=== PATIENT | male | born 1945 | race Caucasian/White ===

== ENCOUNTER 2016-11-17 09:45 | Day surgery (SDC) | payer MEDICARE, OTHER ==
[~2016-11-17] VITALS: Ht 180.3 cm; Wt 106.8 kg
[~2016-11-17 09:45] MED LIST: 0.9% Sodium Chloride 1,000 ML IV SCH; ASPI-973 PO; CLON0.1T PO; DOXA2TAB52 PO; HYG25 PO; LISI10TA2 PO; METO50TA3 PO; Sodium Chloride LOK Flush 10 mL Syringe IV PRN; fentaNYL-PF 50 mCg/mL 2 mL Inj IVPUSH PRN
[2016-11-17 10:14] VITALS: BP 151/86; PULSE 63; RESP 16; O2SAT 93
[2016-11-17 11:02] VITALS: BP 152/79; PULSE 59; RESP 16; O2SAT 90
[2016-11-17 11:14] VITALS: BP 142/71; PULSE 58; RESP 16; O2SAT 95
[2016-11-17 11:17] VITALS: BP 138/72; PULSE 59; RESP 16; O2SAT 93
--- NOTE | 2016-11-17 17:41 | ENDO ---
[address] [address] ENDOSCOPY PROCEDURE PATIENT: FLORI COOPER : 1945 MR#: [id number] ADMIT: 11/17/2016 JOB ID: [id number] PROCEDURE: Colonoscopy. INDICATIONS: This is a patient with a personal history of colon polyps. The patient's ASA classification and Mallampati score are 2. MEDICATIONS: 1. Versed 4 mg. 2. Fentanyl 100 mcg. INSTRUMENT USED: PCF H 180 AL. PREPARATION QUALITY: Poor. PROCEDURE DETAILS: After informed consent was obtained, the patient was brought to the GI suite where she was placed on oxygen via nasal cannula and monitored with continuous pulse oximeter, telemetry, and blood pressure monitoring. A time-out was performed. Then, he was placed in the left lateral decubitus position and medications were administered for sedation. Digital rectal exam with palpation of the prostate was performed which revealed an enlarged, firm prostate without any palpable masses. The colonoscope was then inserted into the rectum and advanced under direct visualization to the cecum which was identified by the presence of the ileocecal valve. I was unable to visualize the appendiceal orifice secondary to poor prep. I did attempt with the copious amounts of irrigation to clear the cecum, however, there was solid debris that clogged the suction channel and after repeated attempts, further attempts to clear the cecum were aborted. At this point, the colonoscope was then withdrawn and the mucosa and lumen were examined. In the rectum, retroflexion was performed. Following retroflexion, remaining air in the rectum was suctioned, and the procedure was completed. FINDINGS: 1. Poor prep throughout the colon. 2. In the transverse colon, there was an approximately 4-5 mm sessile polyp that was removed with a cold snare. IMPRESSION: 1. Poor prep. 2. Transverse colon polyp. RECOMMENDATIONS: Repeat colonoscopy with two day prep. COMPLICATIONS: None. ESTIMATED BLOOD LOSS: Less than 5 mL.
--- NOTE | 2016-11-18 13:47 | PATH ---
SURGICAL PATHOLOGY Attending Physician:Eamon Adair CASE STATUS: Signed Out PATIENT NAME: FLORI COOPER PID: [id number] : 1945 DATE COLLECTED:11/17/2016 16:47 SPECIMEN: Colon, Biopsy CLINICAL HISTORY: 1. TRANSVERSE POLYP X1 FINAL DIAGNOSIS: Transverse Colon, Polyp, Biopsy: Tubular adenoma; negative for high-grade dysplasia. ICD10: K63.5 GROSS DESCRIPTION: The specimen is received in one formalin filled container labeled with the patient's name, sublabeled "transverse polyp x1" and consists of a 0.3 x 0.2 x 0.2 CM portion of tissue which is entirely submitted in one cassette. 11/17/2016 [facility] ICD-9 CODES: CPT CODES: 1: 29292 Electronically Signed Out Ramonita Torres MD [facility], [place] [address] Technical component performed at [facility], [address] [place] [address] Ave[address], [place], [address]
[2016-12-25] MEDS ORDERED: LISI10TA PO (15:26)
== END 2016-11-17 23:59 | disposition home or self-care (01) ==
LOC: END 09:45
PROVIDERS: ATTEND Internal Medicine Gastroenterology
DX: Z12.11 Encounter for screening for malignant neoplasm of colon (principal); Z86.010 Personal history of colon polyps; D12.3 Benign neoplasm of transverse colon; I10 Essential (primary) hypertension; E78.5 Hyperlipidemia, unspecified; E11.9 Type 2 diabetes mellitus without complications; Z79.82 Long term (current) use of aspirin; Z87.891 Personal history of nicotine dependence; Z86.73 Personal history of transient ischemic attack (TIA), and cerebral infarction without residual deficits
CPT/HCPCS: 45385; 88305; G0500; J7030

== ENCOUNTER 2016-12-28 08:23 | Day surgery (SDC) | payer MEDICARE, OTHER ==
[~2016-12-28] VITALS: Ht 180.3 cm; Wt 104.3 kg
[~2016-12-28 08:23] MED LIST changes: -0.9% Sodium Chloride 1,000 ML IV SCH; +LISI10TA PO; -LISI10TA2 PO
[2016-12-28 08:52] VITALS: BP 148/95; PULSE 64; RESP 16; O2SAT 94
[2016-12-28] MEDS: 0.9% Sodium Chloride 1,000 ML IV SCH ×2 (08:59→09:46)
[2016-12-28 09:58] VITALS: BP 144/75; PULSE 59; RESP 15; O2SAT 92
[2016-12-28 10:08] VITALS: BP 128/79; PULSE 59; RESP 16; O2SAT 92
[2016-12-28 10:17] VITALS: BP 140/70; PULSE 61; RESP 16; O2SAT 92
--- NOTE | 2016-12-28 12:00 | ENDO ---
[address] [address] ENDOSCOPY PROCEDURE PATIENT: FLORI COOPER : 1945 MR#: [id number] ADMIT: 12/28/2016 JOB ID: [id number] PROCEDURE: Colonoscopy. INDICATION: History of colon polyps. ASA CLASSIFICATION: 2. MALLAMPATI SCORE: 2. MEDICATIONS: Versed 3 mg, fentanyl 75 mcg. INSTRUMENT USED: PCF-H180-AL. PREPARATION QUALITY: Good. PROCEDURE DETAILS: After informed consent was obtained, the patient was brought into the GI suite, where he was placed on oxygen via nasal cannula and monitored with continuous pulse oximeter, telemetry, and blood pressure monitoring. A time-out was performed. Then, he was placed in a left lateral decubitus position and medications were administered for sedation. Digital rectal exam was performed, which was unremarkable. The colonoscope was then inserted into the rectum and advanced under direct visualization to the cecum, which was identified by the presence of the ileocecal valve and appendiceal orifice. Once the cecum was reached, the colonoscope was withdrawn back to the rectum as the mucosa and lumen were examined. In the rectum, retroflexion was performed. Following retroflexion, remaining air in the rectum was suctioned and the procedure was completed. FINDINGS: 1. In the ascending colon, there was an approximately 4-5 mm sessile polyp, was removed with a cold snare. 2. In the transverse colon was approximately 7 mm sessile polyp that was removed with a hot snare. 3. Scattered diverticula were seen throughout the ascending and descending colon. IMPRESSION: 1. Ascending colon polyp. 2. Transverse polyp. 3. Scattered diverticula in the ascending and descending colon. RECOMMENDATIONS: 1. Avoid NSAIDs and anticoagulants for 72 hours. 2. Repeat colonoscopy in three years. 3. Follow up in GI clinic as needed. COMPLICATIONS: None. ESTIMATED BLOOD LOSS: Less than 5 mL.
--- NOTE | 2016-12-29 10:49 | PATH ---
SURGICAL PATHOLOGY Attending Physician:Eamon Adair CASE STATUS: Signed Out PATIENT NAME: FLORI COOPER PID: [id number] : 1945 DATE COLLECTED:12/28/2016 20:30 SPECIMEN: 1: Colon, Biopsy 2: Colon, Biopsy CLINICAL HISTORY: 1). ASCENDING COLON POLYP 2). TRANSVERSE COLON POLYP FINAL DIAGNOSIS: 1.ASCENDING COLON POLYP: TUBULAR ADENOMA. 2.TRANSVERSE COLON POLYP: SESSILE SERRATED ADENOMA. ICD10 D12.2 GROSS DESCRIPTION: The specimen is received in two formalin filled containers labeled with the patient's name. 1). The specimen is sublabeled "ascending colon polyp" and consists of a 0.3 x 0.3 x 0.3 CM portion of tissue which is entirely submitted in cassette 1A. 2). The specimen is sublabeled "transverse colon polyp" and consists of a 0.5 x 0.4 x 0.4 CM portion of tissue which is entirely submitted in cassette 2A. 12/28/2016 [facility] MICRO DESCRIPTION: See diagnosis. ICD-9 CODES: CPT CODES: 1: 87115 2: 79243 Electronically Signed Out Keith Jason MD [facility] [address], [place] [address] Technical component performed at [facility], [address] [place] [address] Ave[address], [place], [address]
== END 2016-12-28 23:59 | disposition home or self-care (01) ==
LOC: END 08:23
PROVIDERS: ATTEND Internal Medicine Gastroenterology
DX: Z12.11 Encounter for screening for malignant neoplasm of colon (principal); Z86.010 Personal history of colon polyps; D12.2 Benign neoplasm of ascending colon; D12.3 Benign neoplasm of transverse colon; K57.30 Diverticulosis of large intestine without perforation or abscess without bleeding; I10 Essential (primary) hypertension; E11.9 Type 2 diabetes mellitus without complications; Z86.73 Personal history of transient ischemic attack (TIA), and cerebral infarction without residual deficits
CPT/HCPCS: 45385; 99153; G0500; J2250; J3010; J7030

== ENCOUNTER 2017-01-20 16:07 | Emergency (ER) | payer OTHER, MEDICARE ==
[~2017-01-20] VITALS: Ht 180.3 cm; Wt 104.5 kg
[~2017-01-20 16:07] MED LIST changes: -Sodium Chloride LOK Flush 10 mL Syringe IV PRN; -fentaNYL-PF 50 mCg/mL 2 mL Inj IVPUSH PRN
[2017-01-20 16:26] VITALS: BP 143/83; PULSE 71; RESP 15; O2SAT 95
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
[2017-01-20 18:59] VITALS: BP 163/86; PULSE 74; RESP 20; O2SAT 95
== END 2017-01-20 19:00 | disposition home or self-care (01) ==
LOC: SED 16:07
DX: S16.1XXA Strain of muscle, fascia and tendon at neck level, initial encounter (principal); V43.02XA Car driver injured in collision with other type car in nontraffic accident, initial encounter; Y93.89 Activity, other specified; Y92.481 Parking lot as the place of occurrence of the external cause; Y99.8 Other external cause status; Z79.82 Long term (current) use of aspirin; Z79.899 Other long term (current) drug therapy; Z86.73 Personal history of transient ischemic attack (TIA), and cerebral infarction without residual deficits

== ENCOUNTER 2017-03-10 00:11 | Emergency (ER) | payer MEDICARE, OTHER ==
[~2017-03-10] VITALS: Ht 180.3 cm; Wt 104.5 kg
[2017-03-10 00:15] VITALS: BP 222/99; PULSE 87; RESP 20; O2SAT 93
[2017-03-10] MEDS ORDERED: Lidocaine 2% 6mL Topical Jelly ONE (00:30)
--- NOTE | 2017-03-10 00:56 | ED.REPORT ---
HPI- Male Date of Service Mar 10, 2017 ED Provider: Josias Garcia DO Pt is a 71 year old male with a history of HTN, stroke, and BPH who presents to the ED complaining of urinary retention. He c/o associated abdominal pain and enlarged prostate. He denies any other symptoms. He reports that he has been unable to void all day. The pt has an appointment with a urologist in 2 days. Nursing Notes Stated Complaint: NOT ABLE TO URINATE Chief Complaint: Male Abdominal Pain Nursing Notes Reviewed: Yes Allergies: Coded Allergies: No Known Allergies (Verified Allergy, Unknown, 01/20/17) Scheduled Aspirin (Aspirin) 81 Mg Tablet.dr 81 MG PO DAILY Chlorthalidone (Chlorthalidone) 25 Mg Tablet 12.5 MG PO DAILY Clonidine (Clonidine) 0.1 Mg Tablet 0.1 MG PO HS Doxazosin (Cardura) 2 Mg Tablet 2 MG PO HS Lisinopril (Lisinopril) 10 Mg Tablet 10 MG PO DAILY Metoprolol Tartrate (Metoprolol Tartrate) 50 Mg Tablet 50 MG PO BIDWM General Time Seen by MD: 00:20 Chief Complaint Unable to urinate Hx Obtained From: Patient Arrived By: Walk-in Onset Occurred: Onset unknown Symptom Duration: Since onset Location: : Abdomen lower Quality: Painful Radiation: : Does not radiate Severity: Current: Moderate Severity: Maximum: Moderate Recent Healthcare: No recent doctor visit, No recent hospitalization Similar Sx Previous: No Past Medical History Past Medical History CVA 1988 BPH GI bleed Reports: Hypertension Denies: Depression Past Surgical History Hemmorhoidectomy Smoking History Former Smoker Social History Alcohol Use: Denies alcohol use Drug Use: Denies drug use Ambulatory Status Independent Review of Systems + Urinary retention + Enlarged prostate Constitutional: Denies: Fever GI: Reports: Abdominal pain Complete sys rev & neg: except as marked. Physical Exam Initial Vital Signs Vital Signs (First) Date Time Temp Pulse Resp B/P Pulse Ox O2 Delivery O2 Flow Rate FiO2 03/10/17 00:15 36.4 87 20 222/99 93 Room Air Initial VS: Reviewed Head / Eyes: Atraumatic, Normocephalic Neck: Supple, Full range of motion Respiratory: Breath sounds normal, Clear to auscultation, No respiratory distress Cardiovascular: Regular rate & rhythm, Heart sounds normal, Intact distal pulses Extremities: Vascular intact, Neuro intact Skin: Warm, Dry, No cyanosis Neurologic: Alert, Oriented, Nonfocal Psychiatric: Mood/affect normal, Behavior normal Male Genitourinary: Atraumatic Enlarged prostate General/Constitutional: Awake, Alert Calm, cool, and collected following catheter. Abdomen: Atraumatic, Soft Distended bladder. 1.6 L of urine after catheter. Interpretation & Diagnostics Lab Results Interpretation Result Diagram: 03/10/17 0105 03/10/17 0105 Test 03/10/17 00:50 03/10/17 01:05 Urine Color Yellow (YELLOW) Urine Appearance Clear (CLEAR,HAZY) Urine pH 5.5 (5.0-8.0) Urine Specific [place] 1.015 (1.003-1.035) Urine Protein Negativemg/dL (NEG,TRACE) Urine Glucose (UA) 100mg/dL (NEGATIVE) Urine Ketones Negativemg/dL (NEGATIVE) Urine Occult Blood Negative (NEGATIVE) Urine Nitrite Negative (NEGATIVE) Urine Bilirubin Negative (NEGATIVE) Urine Urobilinogen Normalmg/dL (NORMAL) Urine Leukocyte Esterase Negative (NEGATIVE) Urine RBC 0-2/hpf (0-2) Urine WBC 0-5/hpf (0-5) Urine Epithelial Cells None/hpf (NONE-MOD) Urine Crystals None seen (NONE SEEN) Urine Bacteria Few/hpf (NONE-FEW) Urine Hyaline Casts None/lpf (NONE) Urine Granular Casts None seen (NONE SEEN) Urine Waxy Casts None seen (NONE SEEN) Urine Red Blood Cell Casts None seen (NONE SEEN) Urine White Blood Cell Casts None seen (NONE SEEN) Urine Mucus None seen (None Seen) Urine Trichomonas None seen (NONE SEEN) Urine Yeast None (NONE SEEN) Urinalysis Comment None Urine Culture Reflexed Not indicated White Blood Count 9.2th/mm3 (3.8-10.1) Red Blood Count 5.19mil/mm3 (4.40-5.80) Hemoglobin 16.0g/dL (13.8-17.2) Hematocrit 44.8% (41.0-50.0) Mean Corpuscular Volume 86.3fL (81-100) Mean Corpuscular Hemoglobin 30.8pg (27.0-35.0) Mean Corpuscular Hemoglobin Concent 35.7% (32.0-37.0) Red Cell Distribution Width 12.9% (12.3-15.4) Platelet Count 169bil/L (150-400) Neutrophils (%) (Auto) 60.9% (40-74) Lymphocytes (%) (Auto) 28.6% (14-46) Monocytes (%) (Auto) 7.2% (4-12) Eosinophils (%) (Auto) 2.7% (0-5) Basophils (%) (Auto) 0.3% (0-3) Sodium Level 137mEq/L (134-144) Potassium Level 4.6mEq/L (3.5-5.2) Chloride Level 102mEq/L (97-108) Carbon Dioxide Level 21mmol/L (18-29) Blood Urea Nitrogen 29mg/dL (8-27) Creatinine 1.42mg/dL (0.76-1.27) Estimat Glomerular Filtration Rate 52mL/min (>59) Glucose Level 171mg/dL (60-99) Calcium Level 9.3mg/dL (8.5-10.1) Total Bilirubin 0.4mg/dL (0.0-1.2) Aspartate Amino Transf (AST/SGOT) 32U/L (0-50) Alanine Aminotransferase (ALT/SGPT) 17U/L (0-44) Alkaline Phosphatase 67U/L (25-160) Total Protein 6.8g/dL (6.4-8.4) Albumin 4.0g/dL (3.4-5.0) Hold Liriano Top Tube Received (Received) Re-Eval/Medical Decision Source of Hx: Old records Re-Evaluation/Progress : Time of Eval: 01:21 Re-Evaluation/Progress Note: Pt rechecked. Informed pt of plan for discharge. Pt understands and agrees with plan for discharge. F/U instructions and RTER warnings given. All questions addressed. Counseled Regarding: Diagnosis, Lab results, Need for follow-up, When/why to return to ED Discharge & Departure Impression: Primary Impression: Acute urinary retention Disposition: Home Discharge Condition All VS Reviewed: Yes Condition: Stable Patient Instructions: Urinary Retention in Men (ED) Additional Instructions: Take Flomax 1x daily for 10 days. Keep the catheter in until you see your urologist. Keep your follow up appointment with the urologist on Wednesday. See if the urologist wants you keep the catheter in. Discuss longer treatment with the Flomax as well. Return to the Emergency Department if you developed fever or have any new or worrisome symptoms. Her laboratory works show very mild/early renal insufficiency. This may be related to the urinary retention tonight. He will also have a blood sugar of 171. Have both of these followed up by her primary care physician. Stand up slowly while taking the Flomax can lower your blood pressure. Referrals: Ashok Guzman MD (PCP) Scribe Attestation Portions of this note were transcribed by Lucie Richmond. I, Dr. Garcia personally performed the history, physical exam and medical decision-making; I reviewed and confirmed the accuracy of the information in the transcribed note. Signed by : Armida Wilkerson, 03/09/17. copies to: Ashok Guzman MD, Todd P DO Mar 10, 2017 00:56 Lucie Kelly Mar 10, 2017 01:03
[2017-03-10 01:06] LABS: APPEARANCE,URINE CLEAR (CLEAR,HAZY); COLOR,URINE YELLOW (YELLOW); OCCULT BLOOD,URINE NEGATIVE (NEGATIVE); PH,URINE 5.5 (5.0-8.0); UROBILINOGEN,URINE NORMAL (NORMAL)
[2017-03-10 01:15] LABS: BASOPHILS % (AUTO) 0.3 % (0-3); EOSINOPHILS % (AUTO) 2.7 % (0-5); MONOCYTES % (AUTO) 7.2 % (4-12); Mean Corpuscular Hemoglobin 30.8 pg (27.0-35.0); Mean Corpuscular Volume 86.3 fL (81-100); NEUTROPHILS % (AUTO) 60.9 % (40-74); Platelet Count 169 bil/L (150-400)
[2017-03-10 01:33] VITALS: BP 143/67; PULSE 73; O2SAT 93
[2017-03-10 02:00] VITALS: BP 143/67; PULSE 73; RESP 20; O2SAT 93
== END 2017-03-10 02:01 | disposition home or self-care (01) ==
LOC: SED 00:11
DX: R33.8 Other retention of urine (principal); I10 Essential (primary) hypertension; Z87.891 Personal history of nicotine dependence; Z79.82 Long term (current) use of aspirin; Z86.73 Personal history of transient ischemic attack (TIA), and cerebral infarction without residual deficits

== ENCOUNTER 2017-04-20 02:56 | Emergency (ER) | payer MEDICARE, OTHER ==
[2017-04-20 03:11] VITALS: BP 195/85; PULSE 70; RESP 20; O2SAT 96
--- NOTE | 2017-04-20 04:12 | ED.REPORT ---
HPI- Female Date of Service Apr 20, 2017 ED Provider: Evan Srinivasan MD The patient is a 71 year old male presenting to the ED wanting to change his urinary catheter. The nurse changed the catheter before I was able to go into the room. he patient was given a larger catheter. He does not complain of any other issues. Nursing Notes Stated Complaint: CATHETER LEAKING Chief Complaint: General Complaint Nursing Notes Reviewed: Yes Allergies: Coded Allergies: No Known Allergies (Verified Allergy, Unknown, 01/20/17) Scheduled Aspirin (Aspirin) 81 Mg Tablet.dr 81 MG PO DAILY Chlorthalidone (Chlorthalidone) 25 Mg Tablet 12.5 MG PO DAILY Clonidine (Clonidine) 0.1 Mg Tablet 0.1 MG PO HS Doxazosin (Cardura) 2 Mg Tablet 2 MG PO HS Lisinopril (Lisinopril) 10 Mg Tablet 10 MG PO DAILY Metoprolol Tartrate (Metoprolol Tartrate) 50 Mg Tablet 50 MG PO BIDWM General Time Seen by MD: 04:09 Chief Complaint Other (catheter leaking) Hx Obtained From: Patient Arrived By: Walk-in Sudden in Onset?: Yes Onset Occurred: Just prior to arrival Past Medical History Past Medical History CVA 1988 BPH GI bleed Reports: Hypertension Past Surgical History Hemmorhoidectomy Smoking History Former Smoker Social History Alcohol Use: Denies alcohol use Drug Use: Denies drug use Ambulatory Status Independent Physical Exam Initial Vital Signs Vital Signs (First) Date Time Temp Pulse Resp B/P Pulse Ox O2 Delivery O2 Flow Rate FiO2 04/20/17 03:11 35.9 70 20 195/85 96 Room Air Initial VS: Reviewed, Vital signs abnormal Discharge & Departure Impression: Primary Impression: Hodge catheter problem Encounter type: initial encounter Qualified Code: T83.9XXA - Unspecified complication of genitourinary prosthetic device, implant and graft, initial encounter Disposition: Home Discharge Condition All VS Reviewed: Yes Condition: Improved Patient Instructions: Hodge Catheter Placement and Care (ED) Additional Instructions: Continue care of your Hodge catheter. Follow-up with your regular doctor if you have further problems. Referrals: Ashok Guzman MD (PCP) Evan Srinivasan MD Apr 20, 2017 04:12 Apr 20, 2017 04:25
--- NOTE | 2017-04-20 04:41 | ED.REPORT ---
HPI- Male Date of Service Apr 20, 2017 ED Provider: Evan Srinivasan MD The patient is a 71 year old male with leaking around his Hodge catheter. He has no other symptoms at this time. Nursing Notes Stated Complaint: CATHETER LEAKING Chief Complaint: General Complaint Nursing Notes Reviewed: Yes Allergies: Coded Allergies: No Known Allergies (Verified Allergy, Unknown, 01/20/17) Scheduled Aspirin (Aspirin) 81 Mg Tablet.dr 81 MG PO DAILY Chlorthalidone (Chlorthalidone) 25 Mg Tablet 12.5 MG PO DAILY Clonidine (Clonidine) 0.1 Mg Tablet 0.1 MG PO HS Doxazosin (Cardura) 2 Mg Tablet 2 MG PO HS Lisinopril (Lisinopril) 10 Mg Tablet 10 MG PO DAILY Metoprolol Tartrate (Metoprolol Tartrate) 50 Mg Tablet 50 MG PO BIDWM General Time Seen by MD: 04:09 Chief Complaint Other (Urinary catherter leaking) Hx Obtained From: Patient Arrived By: Walk-in Onset Occurred: Just prior to arrival Symptom Duration: Since onset Recent Healthcare: No recent hospitalization, Recent doctor visit Similar Sx Previous: Yes Past Medical History Past Medical History CVA 1988 BPH GI bleed Reports: Hypertension Past Surgical History Hemmorhoidectomy Smoking History Former Smoker Social History Alcohol Use: Denies alcohol use Drug Use: Denies drug use Ambulatory Status Independent Review of Systems leaking catheter Constitutional: Denies: Chills, Fever GI: Denies: Diarrhea, Nausea, Vomiting Complete sys rev & neg: except as marked. Respiratory: Denies: Shortness of breath, Wheezing Physical Exam Initial Vital Signs Vital Signs (First) Date Time Temp Pulse Resp B/P Pulse Ox O2 Delivery O2 Flow Rate FiO2 04/20/17 03:11 35.9 70 20 195/85 96 Room Air Initial VS: Reviewed, Vital signs normal General/Constitutional: Well-developed, Well-nourished Head / Eyes: Atraumatic, Normocephalic ENT: Mucous membranes moist Neck: Supple, Full range of motion Respiratory: Breath sounds normal, No respiratory distress Cardiovascular: Regular rate & rhythm, Heart sounds normal Abdomen / GI: Soft, Non-tender Back: No CVA tenderness Lymphatic: No lymphadenopathy Extremities: Vascular intact, Neuro intact Skin: Warm, Dry Neurologic: Alert, Oriented Psychiatric: Mood/affect normal, Behavior normal Male Genitourinary: Atraumatic catheter no longer leaking Re-Eval/Medical Decision Med Decision/Clinical Course 71-year-old male who is a leaking Hodge catheter. His catheter was changed out by nursing to a larger size with complete resolution of his symptoms. It is now draining well and not leaking. Re-Evaluation/Progress : Time of Eval: 04:25 Re-Evaluation/Progress Note: Patient rechecked. Discussed plan to discharge. All questions addressed at this time. Counseled Regarding: Diagnosis, Need for follow-up, When/why to return to ED Discharge & Departure Impression: Primary Impression: Hodge catheter problem Encounter type: initial encounter Qualified Code: T83.9XXA - Unspecified complication of genitourinary prosthetic device, implant and graft, initial encounter Disposition: Home Discharge Condition Condition: Improved Patient Instructions: Hodge Catheter Placement and Care (ED) Additional Instructions: Continue care of your Hodge catheter. Follow-up with your regular doctor if you have further problems. Referrals: Ashok Guzman MD (PCP) Scribe Attestation Portions of this note were transcribed by Fidencio Coley. I, Dr. Srinivasan personally performed the history, physical exam and medical decision-making; I reviewed and confirmed the accuracy of the information in the transcribed note. Signed by: Armida Mayen, 04/20/2017 copies to: Ashok Guzman MD, Howard L MD Apr 20, 2017 04:41 Apr 20, 2017 04:43
== END 2017-04-20 04:30 | disposition home or self-care (01) ==
LOC: SED 02:56
DX: T83.038A Leakage of other urinary catheter, initial encounter (principal); X58.XXXA Exposure to other specified factors, initial encounter; Y84.6 Urinary catheterization as the cause of abnormal reaction of the patient, or of later complication, without mention of misadventure at the time of the procedure; Y92.9 Unspecified place or not applicable; Y99.8 Other external cause status; I10 Essential (primary) hypertension; Z86.73 Personal history of transient ischemic attack (TIA), and cerebral infarction without residual deficits; Z87.891 Personal history of nicotine dependence; Z79.82 Long term (current) use of aspirin